=== PATIENT | female | born 1985 | race Hispanic/Latino ===

== ENCOUNTER 2016-10-10 12:41 | Emergency (ER) | payer SELFPAY ==
[~2016-10-10] VITALS: Ht 149.9 cm; Wt 81.0 kg
[~2016-10-10 12:41] MED LIST: BACTRIM DS1 TAB PO; BENADRYL 50MG C50 MG PO; CIPROFLOXACN500 MG PO; LORTAB5 PO; PRENATA7 OR; ZOFRAN ODT4 MG SL
[2016-10-10 13:02] LABS: HEMATOCRIT 39.5 % (37.0-47.0); HEMOGLOBIN 13.3 g/dl (12.0-16.0); IMMATURE GRANULOCYTES 0.4 % (0.0-1.0); MEAN CORPUSCULAR HGB 29.3 pG CALC (26.0-32.0); MEAN CORPUSCULAR HGB CONC 33.7 g/L CALC (32.0-36.0); NEUT# 4.37 thou/uL (2.00-7.15); RED BLOOD COUNT 4.54 mill/uL (4.20-5.60); RED CELL DISTRI WIDTH 12.8 % (11.5-15.5)
[2016-10-10 13:15] LABS: ALBUMIN 4.8 g/dL (3.2-5.0); ALKALINE PHOSPHATASE 154 u/l (38-126); ANION GAP 20 (6-22 (CALC)); BILIRUBIN, TOTAL 0.5 mg/dL (0.0-1.4); BUN 12 mg/dL (7-17); BUN/CREATININE RATIO 18 (12-20 (CALC)); CALCIUM 9.4 mg/dL (8.4-10.2); CARBON DIOXIDE 28 mmol/l (22-30); CHLORIDE 100 mmol/l (95-108); CREATININE 0.7 mg/dL (0.5-1.0); GFR > 60 ML/MIN (>=60 (CALC)); GFR FOR AFR.AMER. > 60 ML/MIN (>=60 (CALC)); GLUCOSE 114 mg/dL (65-105); POTASSIUM 3.4 mmol/l (3.5-5.1); SGOT/AST 40 u/l (14-36); SGPT/ALT 62 u/l (9-52); SODIUM 145 mmol/l (137-146); TOTAL PROTEIN 9.1 g/dL (6.3-8.2)
[2016-10-10 13:27] LABS: MYOGLOBIN 27 ng/mL (0 - 62)
[2016-10-10 18:06] VITALS: BP 96/43
[2016-10-10] MEDS ORDERED: ASPIRIN 81 LOW81 MG PO (18:06)
== END 2016-10-10 18:14 | disposition home or self-care (01) | DRG 313 ==
LOC: ED 12:41 → ED-I 14:19 → ED 18:14
PROVIDERS: Emergency Medicine
DX: R07.9 Chest pain, unspecified (principal); R20.0 Anesthesia of skin

== ENCOUNTER 2022-11-19 08:08 | Emergency (ER) | payer SELFPAY ==
[~2022-11-19] VITALS: Ht 149.9 cm; Wt 83.0 kg
[2022-11-19] VITALS (8 sets, daily range): BP systolic 112–138; BP diastolic 67–103
[~2022-11-19 08:08] MED LIST changes: +ASPIRIN 81 LOW81 MG PO
[2022-11-19 09:23] LABS: URINE BILIRUBIN - DIPSTICK NEGATIVE (NEGATIVE); URINE BLOOD DIPSTICK TRACE-INTACT (NEGATIVE); URINE COLOR YELLOW; URINE GLUCOSE - DIPSTICK NEGATIVE (NEGATIVE); URINE KETONE NEGATIVE (NEGATIVE); URINE LEUK ESTERASE TRACE (NEGATIVE); URINE PH 6.5 (4.5-8.0); URINE PROTEIN - DIPSTICK NEGATIVE (NEG-TRACE); URINE UROBILINOGEN - DIPSTICK 0.2 E.U./dL (0.2)
[2022-11-19 09:24] LABS: URINE NITRITE - DIPSTICK NEGATIVE (Negative)
[2022-11-19 09:25] LABS: BASO% 0.6 % (0-3); EOS% 1.5 % (0-8); HEMATOCRIT 39.6 % (37.0-47.0); HEMOGLOBIN 13.1 g/dl (12.0-16.0); IMMATURE GRANULOCYTES 0.3 % (0.0-5.0); LYMPH% 21.2 % (15-41); MEAN CORPUSCULAR HGB 29.4 pG CALC (26.0-32.0); MEAN CORPUSCULAR HGB CONC 33.1 g/dL CAL (32.0-36.0); MONO% 3.5 % (2-13); NEUT# 4.95 thou/uL (2.00-7.15); NEUT% 72.9 % (42-76); RED BLOOD COUNT 4.45 mill/uL (4.20-5.60); RED CELL DISTRI WIDTH 12.7 % (11.5-15.5)
[2022-11-19 09:28] LABS: ALBUMIN 4.6 g/dL (3.2-5.0); ALKALINE PHOSPHATASE 120 u/l (38-126); ANION GAP 14 (6-22 (CALC)); BILIRUBIN, TOTAL 0.4 mg/dL (0.02-1.3); BUN 12 mg/dL (7-17); BUN/CREATININE RATIO 18 (12-20 (CALC)); CARBON DIOXIDE 29 mmol/l (22-30); CHLORIDE 100 mmol/l (95-108); CREATININE 0.7 mg/dL (0.5-1.0); GFR FOR AFR.AMER. > 60 ML/MIN (>=60 (CALC)); GFR OTHER RACES > 60 ML/MIN (>=60 (CALC)); POTASSIUM 3.6 mmol/l (3.5-5.1); SGOT/AST 42 u/l (14-36); SODIUM 139 mmol/l (137-146)
== END 2022-11-19 13:00 | disposition home or self-care (01) | DRG 392 ==
LOC: ED 08:08
PROVIDERS: Family Medicine
DX: R10.31 Right lower quadrant pain (principal)